=== PATIENT | male | born 1940 | race Caucasian/White ===

== ENCOUNTER 2021-02-21 18:11 | Inpatient (IN) ==
[2021-02-21] MEDS ORDERED: Naloxone 0.4 mg VIAL 0.4 mg/ml 1 ml VIAL IV PUSH ONE ×2 (18:38→19:51)
[2021-02-21 19:03] LABS: ABS Eosinophils 0.1 10^3/ul (0-0.6); ABS Lymphocytes 2.1 10^3/ul (1.0-4.8); ABS Monocytes 1.1 10^3/ul (0-0.8); ABS Neutrophils 5.3 10^3/ul (1.5-7.7); Eosinophil % 0.6 %; Hematocrit 50 % (42-52); Hemoglobin 16.6 g/dL (14.0-18.0); Lymphocyte % 24.2 %; Mean Corpuscular HGB Conc 33 g/dL (31-36); Mean Corpuscular Hemoglobin 34 pg (27-31); Mean Corpuscular Volume 101 fL (80-94); Mean Platelet Volume 8.6 fL (7.4-10.4); Platelet Count 173 10^3/uL (150-450); Red Blood Count 4.93 10^6 /uL (4.18-5.48); Red Cell Distribution Width 15 % (10-15); White Blood Count 8.6 10^3/uL (3.5-10.8)
[2021-02-21 19:19] LABS: Albumin 4.6 g/dL (3.2-5.2); Anion Gap 5 mmol/L (2-11); Blood Urea Nitrogen 14 mg/dL (6-24); CO2 Carbon Dioxide 31 mmol/L (22-32); Calcium 9.1 mg/dL (8.6-10.3); Chloride 104 mmol/L (101-111); EGFR African American 55.2 (>60); EGFR Non-African American 45.6 (>60); Glucose 124 mg/dL (70-100); Potassium 4.4 mmol/L (3.5-5.0); Sodium 140 mmol/L (135-145); Total Protein 8.1 g/dL (6.4-8.9)
[2021-02-21 19:20] LABS: ALT 13 U/L (7-52); AST 16 U/L (13-39); Albumin/Globulin Ratio 1.3 (1-3); Alkaline Phosphatase 79 U/L (35-149); Globulin 3.5 g/dL (2-4)
[2021-02-21 19:21] LABS: Troponin I 0.01 ng/mL (<0.03)
[2021-02-21 19:45] LABS: Urine Appearance Cloudy; Urine Bilirubin Negative (Negative); Urine Blood Negative (Negative); Urine Color Yellow; Urine Glucose Negative (Negative); Urine Ketones Negative (Negative); Urine Nitrite Negative (Negative); Urine Protein 1+(30 mg/dL) (Negative); Urine Specific Gravity 1.015 (1.002-1.030); Urine Urobilinogen Negative (Negative)
[2021-02-21 19:51] LABS: Acetaminophen < 15 mcg/mL; Alcohol, S < 13 mg/dL (<13); Salicylate < 2.50 mg/dL (<30)
[2021-02-21 19:58] LABS: Urine Benzodiazepine Screen None Detected (None Detect); Urine Cannabinoids Screen None Detected (None Detect); Urine Opiates Screen Presumptive Positive (None Detect)
[2021-02-21 20:18] LABS: Urine Bacteria Absent (Absent); Urine Red Blood Cell Trace(0-2/hpf) (Absent); Urine White Blood Cell 1+(6-10/hpf) (Absent)
[2021-02-22 00:17] LABS: Rapid COVID-19 Molecular Undetected (Undetected)
[2021-02-22] MEDS ORDERED: Naloxone 0.4 mg VIAL 0.4 mg/ml 1 ml VIAL IV PUSH ONE (02:08)
[2021-02-22] MEDS ORDERED: Naloxone 0.4 mg VIAL 0.4 mg/ml 1 ml VIAL ONE (02:13)
[2021-02-22 05:47] LABS: ABS Lymphocytes 1.7 10^3/ul (1.0-4.8); ABS Neutrophils 4.9 10^3/ul (1.5-7.7); Eosinophil % 0.4 %; Hematocrit 45 % (42-52); Lymphocyte % 22.2 %; Mean Corpuscular HGB Conc 33 g/dL (31-36); Mean Corpuscular Hemoglobin 33 pg (27-31); Mean Corpuscular Volume 100 fL (80-94); Mean Platelet Volume 8.7 fL (7.4-10.4); Nucleated Red Blood Cells % 0.1; Platelet Count 146 10^3/uL (150-450); Red Blood Count 4.49 10^6 /uL (4.18-5.48); Red Cell Distribution Width 15 % (10-15); White Blood Count 7.6 10^3/uL (3.5-10.8)
[2021-02-22 06:07] LABS: Calcium 8.7 mg/dL (8.6-10.3); EGFR African American 71.7 (>60); EGFR Non-African American 59.2 (>60); Potassium 4.3 mmol/L (3.5-5.0)
[2021-02-22] MEDS: Venlafaxine XR 75 mg PO SCH (09:46)
[2021-02-22] MEDS: Mirabegron 50 mg ER TAB (NF) PO SCH (09:51)
[2021-02-22 10:59] LABS: INR 1.7 (0.86-1.15)
[2021-02-22] MEDS ORDERED: Enoxaparin 40 MG/0.4 ML SYR SUBCUT ONE (15:44)
[2021-02-22] MEDS: Warfarin DAILY REMINDER **NOTE FOLLOW UP SCH (17:21)
[2021-02-22 17:59] LABS: Folate 7.33 ng/mL (5.90-24.80)
[2021-02-23 04:15] LABS: INR 1.84 (0.86-1.15)
[2021-02-23 04:29] LABS: Calcium 8.9 mg/dL (8.6-10.3); EGFR African American 76.9 (>60); EGFR Non-African American 63.6 (>60); Potassium 3.9 mmol/L (3.5-5.0)
[2021-02-23] MEDS: Venlafaxine XR 75 mg PO SCH (09:19)
[2021-02-23] MEDS: Mirabegron 50 mg ER TAB (NF) PO SCH (09:21)
[2021-02-23] MEDS: Warfarin DAILY REMINDER **NOTE FOLLOW UP SCH (16:28)
[2021-02-24 06:56] LABS: INR 2.43 (0.86-1.15)
[2021-02-24] MEDS: Venlafaxine XR 75 mg PO SCH (10:19)
[2021-02-24] MEDS: Mirabegron 50 mg ER TAB (NF) PO SCH (10:21)
[2021-02-24 13:12] VITALS: BP 134/74
== END 2021-02-24 12:25 | disposition home or self-care (01) | DRG 918 ==
LOC: MEDTELE 18:11 → ED 18:11 → SUATTDRO 22:47 → MEDTELE 02-22 01:40
PROVIDERS: ADMIT Hospitalist; ATTEND Internal Medicine